=== PATIENT | female | born 1985 | race Asian ===

== ENCOUNTER 2021-12-28 16:19 | Observation (INO) ==
--- NOTE | 2021-12-28 17:01 | Emergency Department Note ---
History of Present Illness General Chief complaint: Shortness of Breath/Dyspnea Stated complaint: CHEST PAIN Time Seen by Provider: 12/28/21 16:44 Source: patient History of Present Illness Provider complaint: Chest pain Onset (ago): day(s) 3 Location: chest Radiation: non-radiation Pain Consistency: + intermittent Maximum Pain Intensity: 7 Quality: + sharp Exacerbated By: + other (Deep breaths and cough) Associated symptoms: + chest pain, + cough, + fever/chills, + malaise and + weakness; no nausea/vomiting or no shortness of breath This is a 36-year-old female who presents with chest pain starting 3 days ago. She describes it as sharp. It is located in the middle of her chest. Is worse when she coughs or takes a deep breath. It is not associated with shortness of breath or difficulty breathing. She states that she has been sick for about a week with flulike symptoms. Initially she had diarrhea and then that went away. About 4 days ago she developed generalized fatigue and weakness and then sore throat and cough. Her cough is productive of yellow sputum. She denies any loss of taste or smell. She has felt feverish and had chills but when she took her temperature she did not have a fever. She feels nauseated but is not vomiting. She denies any abdominal pain, abnormal vaginal discharge or bleeding or urinary symptoms. She is vaccinated for COVID and has had a booster shot. She does have a history of cardiomyopathy which was discovered after she gave to her baby. She is currently on metoprolol and verapamil for this. She did take a COVID test at home 2 days ago which was negative. Home Medications Medication Instructions Recorded Confirmed Type atorvastatin 10 mg tablet 10 mg PO HS 07/24/18 12/28/21 History metoprolol succinate 25 mg See Rx Instructions .ROUTE .COMPLEX 07/24/18 12/28/21 History tablet,extended release 24 hr verapamil 180 mg tablet,extended 180 mg PO BID 07/24/18 12/28/21 History release famotidine 20 mg tablet 20 mg PO HS 12/01/19 12/28/21 History pantoprazole 40 mg tablet,delayed 40 mg PO QAM 12/28/21 12/28/21 History release Allergies Allergy/AdvReac Type Severity Reaction Status Date / Time shrimp Allergy Intermediate Unknown Verified 10/29/21 14:32 No Known Drug Allergies Allergy Unknown Verified 10/29/21 14:32 Past Med/Surg History Medical History (Updated 12/28/21 @ 23:09 by Dustin Michelle MD) Fatty liver GERD (gastroesophageal reflux disease) Hyperlipidemia Hypertrophic cardiomyopathy follows with [facility] Cardiology Surgical History History of removal of ovarian cyst bilateral History of wisdom tooth extraction Hx of LASIK Family History Father Family history of diabetes mellitus Other No family history of adverse response to anesthesia No pertinent family history Social History Smoking Status: Never smoker Second Hand Exposure: No; Hx Alcohol Use: No Hx Substance Use: No Preferred Language: Mandarin Serbian Communication Ability: Impaired Visual Impairment: No Limitations Hearing Ability: Normal 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 and A total of 10 systems reviewed and were otherwise negative Physical Exam Vital Signs Vital Signs - 24 hr 12/28/21 16:23 12/28/21 16:28 12/28/21 17:02 Temperature 36.8 C Temperature Source Temporal Artery Scan Pulse Rate 64 71 Pulse Rate [Apical] Respiratory Rate 20 Blood Pressure 90/63 L Blood Pressure [Right Arm] Blood Pressure Mean 72 Blood Pressure Mean [Right Arm] Blood Pressure Position [Right Arm] Pulse Oximetry 93 90 Oxygen Delivery Method Room Air Room Air Room Air Sepsis Recent Fever Within 48 Hours No Sepsis New/Unexplained Change in Mental Status No Sepsis Action Taken by Nursing No Action Required 12/28/21 18:19 12/28/21 18:25 Temperature Temperature Source Pulse Rate Pulse Rate [Apical] 82 Respiratory Rate 18 Blood Pressure Blood Pressure [Right Arm] 97/76 L Blood Pressure Mean Blood Pressure Mean [Right Arm] 83 Blood Pressure Position [Right Arm] Lying Pulse Oximetry 92 Oxygen Delivery Method Room Air Sepsis Recent Fever Within 48 Hours Sepsis New/Unexplained Change in Mental Status Sepsis Action Taken by Nursing Constitutional: Vital signs reviewed. Eyes: Pupils are equal round reactive to light. Conjunctiva are noninjected. ENT: Pharynx is clear without erythema or exudate. Mucous membranes are moist. Neck supple without meningeal signs. Respiratory: Clear to auscultation bilaterally. Breath sounds are equal bilaterally. Cardiovascular: Regular rate and rhythm. No rubs or gallops. GI: Soft, nondistended and nontender. Bowel sounds are present. Musculoskeletal: No peripheral edema. No lower extremity tenderness. Integumentary: No cyanosis. or jaundice. Neurological: The patient is awake and alert. No focal deficits. Psychiatric: Normal affect. Not anxious appearing. Course Administered Medications Atorvastatin Calcium (Atorvastatin 10 Mg Tab) 10 mg PO HS ANTONIO Stop: 01/27/22 20:59 Last Admin: 12/28/21 22:51 Dose: 10 mg Documented by: [id number] Famotidine (Famotidine 20 Mg Tab) 20 mg PO HS ANTONIO Stop: 01/27/22 20:59 Last Admin: 12/28/21 22:50 Dose: 20 mg Documented by: [id number] Guaifenesin (Guaifenesin 600 Mg Tabcr) 600 mg PO Q12 ANTONIO Stop: 01/27/22 20:59 Last Admin: 12/28/21 22:50 Dose: 600 mg Documented by: [id number] Metoprolol Succinate (Metoprolol Succ 50mg Ext Rel Tab) 50 mg PO HS [facility] Stop: 01/27/22 21:14 Last Admin: 12/28/21 22:48 Dose: 50 mg Documented by: [id number] Verapamil HCl (Verapamil Hcl 180 Mg Tabcr) 180 mg PO BID ANTONIO Stop: 01/27/22 20:59 Last Admin: 12/28/21 22:49 Dose: 180 mg Documented by: [id number] Discontinued Medications Piperacillin Sod/Tazobactam Sod (Zosyn) 4.5 gm in 120 mls @ 240 mls/hr IV NOW ONE Stop: 12/28/21 19:01 Last Admin: 12/28/21 19:28 Dose: Not Given Documented by: [id number] Medical Decision Making Differential Diagnosis COVID-19, pneumonia, pleurisy, pulmonary embolism, CHF Medical Records Attestation: I reviewed the patient's medical records. I did perform a limited focused review of portions of the patient's old chart on the electronic medical record. The patient was seen by Dr. Watts of cardiology in May 2021. He noted that she has a history of hypertrophic cardiomyopathy with chronic dyspnea on exertion and borderline blood pressures with preserved left ventricular systolic function. Stress echocardiogram was negative for inducible ischemia or ectopy in May 2021. Home Medications Current Medication List: was personally reviewed by me Laboratory Data Attestation: I reviewed the patient's lab results. Result diagrams: 12/28/21 17:18 12/28/21 17:18 Lab Results 12/28/21 12/28/21 12/28/21 Range/Units 17:18 17:18 17:18 WBC 5.71 (4.8-10.8) K/ul RBC 4.91 (3.93-5.22) M/uL Hgb 14.6 (12.0-16.0) g/dl Hct 43.4 (34.1-44.9) % MCV 88.4 (80.0-100.0) fL MCH 29.7 (25.0-34.0) pg MCHC 33.6 (32.0-36.0) g/dL RDW Std Deviation 43.2 (36.4-46.3) fL RDW Coeff of Sabina 13.2 (11.5-14.5) % Plt Count 141 (130-400) K/uL MPV 12.8 H (9.4-12.3) fL Immature Gran % (Auto) 0.7 % Neut % (Auto) 66.9 % Lymph % (Auto) 19.8 % Harlan % (Auto) 12.4 % Eos % (Auto) 0.0 % Baso % (Auto) 0.2 % Neut # (Auto) 3.82 (1.4-6.5) K/uL Lymph # (Auto) 1.13 L (1.2-3.4) K/uL Harlan # (Auto) 0.71 (0.24-0.82) K/uL Eos # (Auto) 0.00 (0-0.50) K/uL Baso # (Auto) 0.01 (0-0.2) K/uL Immature Gran # (Auto) 0.04 H (0.00-0.02) K/uL PT 11.1 (9.0-12.0) Seconds INR 1.0 (0.9-1.1) APTT 30.5 (21.0-31.0) Seconds PTT Ratio 1.1 D-Dimer 240 (0-500) ug/L FEU Sodium (136-145) mmol/L Potassium (3.5-5.1) mmol/L Chloride (98-107) mmol/L Carbon Dioxide (21-32) mmol/L Anion Gap (3-11) BUN (6-23) mg/dl Creatinine (0.6-1.2) mg/dl Est Cr Clr Drug Dosing Est GFR ( Amer) ml/min Est GFR (Non-Af Amer) ml/min BUN/Creatinine Ratio (10-20) Glucose (70-99(Fasting)) mg/dl Calcium (8.5-10.1) mg/dl Total Bilirubin (0.2-1.0) mg/dl AST (13-39) U/L ALT (7-52) U/L Alkaline Phosphatase (34-104) U/L Troponin I High Sens (0-14) pg/ml B-Natriuretic Peptide 272 H (0-100) pg/ml Total Protein (6.0-8.3) gm/dl Albumin (3.4-5.0) gm/dl Globulin (2.5-4.0) gm/dl Albumin/Globulin Ratio (0.9-2) Urine Color Urine Appearance (Clear) Urine pH (4.5-7.5) Ur Specific [place] (1.000-1.030) Urine Protein (Negative) Urine Glucose (UA) (Negative) Urine Ketones (Negative) Urine Blood (Negative) Urine Nitrite (Negative) Urine Bilirubin (Negative) Urine Urobilinogen (Negative) Ur Leukocyte Esterase (Negative) POC Ur Test (NEG) SARS-CoV-2, RNA, NAAT (NEGATIVE) 12/28/21 12/28/21 12/28/21 Range/Units 17:18 17:34 17:35 WBC (4.8-10.8) K/ul RBC (3.93-5.22) M/uL Hgb (12.0-16.0) g/dl Hct (34.1-44.9) % MCV (80.0-100.0) fL MCH (25.0-34.0) pg MCHC (32.0-36.0) g/dL RDW Std Deviation (36.4-46.3) fL RDW Coeff of Sabina (11.5-14.5) % Plt Count (130-400) K/uL MPV (9.4-12.3) fL Immature Gran % (Auto) % Neut % (Auto) % Lymph % (Auto) % Harlan % (Auto) % Eos % (Auto) % Baso % (Auto) % Neut # (Auto) (1.4-6.5) K/uL Lymph # (Auto) (1.2-3.4) K/uL [place] # (Auto) (0.24-0.82) K/uL Eos # (Auto) (0-0.50) K/uL Baso # (Auto) (0-0.2) K/uL Immature Gran # (Auto) (0.00-0.02) K/uL PT (9.0-12.0) Seconds INR (0.9-1.1) APTT (21.0-31.0) Seconds PTT Ratio D-Dimer (0-500) ug/L FEU Sodium 132 L (136-145) mmol/L Potassium 3.8 (3.5-5.1) mmol/L Chloride 100 (98-107) mmol/L Carbon Dioxide 24 (21-32) mmol/L Anion Gap 8 (3-11) BUN 15 (6-23) mg/dl Creatinine 0.85 (0.6-1.2) mg/dl Est Cr Clr Drug Dosing Not Reportable Est GFR ( Amer) 102.9 ml/min Est GFR (Non-Af Amer) 88.8 ml/min BUN/Creatinine Ratio 17.6 (10-20) Glucose 105 H (70-99(Fasting)) mg/dl Calcium 8.8 (8.5-10.1) mg/dl Total Bilirubin 0.6 (0.2-1.0) mg/dl AST 21 (13-39) U/L ALT 23 (7-52) U/L Alkaline Phosphatase 55 (34-104) U/L Troponin I High Sens 50.2 H* (0-14) pg/ml B-Natriuretic Peptide (0-100) pg/ml Total Protein 7.6 (6.0-8.3) gm/dl Albumin 4.2 (3.4-5.0) gm/dl Globulin 3.4 (2.5-4.0) gm/dl Albumin/Globulin Ratio 1.2 (0.9-2) Urine Color Yellow Urine Appearance Clear (Clear) Urine pH 7.5 (4.5-7.5) Ur Specific [place] 1.006 (1.000-1.030) Urine Protein Negative (Negative) Urine Glucose (UA) Negative (Negative) Urine Ketones Negative (Negative) Urine Blood Negative (Negative) Urine Nitrite Negative (Negative) Urine Bilirubin Negative (Negative) Urine Urobilinogen Negative (Negative) Ur Leukocyte Esterase Negative (Negative) POC Ur Test (NEG) SARS-CoV-2, RNA, NAAT NEGATIVE (NEGATIVE) 12/28/21 Range/Units 17:35 WBC (4.8-10.8) K/ul RBC (3.93-5.22) M/uL Hgb (12.0-16.0) g/dl Hct (34.1-44.9) % MCV (80.0-100.0) fL MCH (25.0-34.0) pg MCHC (32.0-36.0) g/dL RDW Std Deviation (36.4-46.3) fL RDW Coeff of Sabina (11.5-14.5) % Plt Count (130-400) K/uL MPV (9.4-12.3) fL Immature Gran % (Auto) % Neut % (Auto) % Lymph % (Auto) % Harlan % (Auto) % Eos % (Auto) % Baso % (Auto) % Neut # (Auto) (1.4-6.5) K/uL Lymph # (Auto) (1.2-3.4) K/uL [place]lan # (Auto) (0.24-0.82) K/uL Eos # (Auto) (0-0.50) K/uL Baso # (Auto) (0-0.2) K/uL Immature Gran # (Auto) (0.00-0.02) K/uL PT (9.0-12.0) Seconds INR (0.9-1.1) APTT (21.0-31.0) Seconds PTT Ratio D-Dimer (0-500) ug/L FEU Sodium (136-145) mmol/L Potassium (3.5-5.1) mmol/L Chloride (98-107) mmol/L Carbon Dioxide (21-32) mmol/L Anion Gap (3-11) BUN (6-23) mg/dl Creatinine (0.6-1.2) mg/dl Est Cr Clr Drug Dosing Est GFR ( Amer) ml/min Est GFR (Non-Af Amer) ml/min BUN/Creatinine Ratio (10-20) Glucose (70-99(Fasting)) mg/dl Calcium (8.5-10.1) mg/dl Total Bilirubin (0.2-1.0) mg/dl AST (13-39) U/L ALT (7-52) U/L Alkaline Phosphatase (34-104) U/L Troponin I High Sens (0-14) pg/ml B-Natriuretic Peptide (0-100) pg/ml Total Protein (6.0-8.3) gm/dl Albumin (3.4-5.0) gm/dl Globulin (2.5-4.0) gm/dl Albumin/Globulin Ratio (0.9-2) Urine Color Urine Appearance (Clear) Urine pH (4.5-7.5) Ur Specific [place] (1.000-1.030) Urine Protein (Negative) Urine Glucose (UA) (Negative) Urine Ketones (Negative) Urine Blood (Negative) Urine Nitrite (Negative) Urine Bilirubin (Negative) Urine Urobilinogen (Negative) Ur Leukocyte Esterase (Negative) POC Ur Test NEG (NEG) SARS-CoV-2, RNA, NAAT (NEGATIVE) Imaging Data Radiologist's Impression: Chest X-Ray 12/28/21 17:53 XR chest 1V portable CLINICAL HISTORY: cough eval for pna TECHNIQUE: Single frontal radiograph of the chest was obtained. Comparison: None available at the time of this dictation. FINDINGS: No lines and tubes are seen. Mild prominence of the cardiac silhouette is seen. Right lower lung airspace opacity is seen. No evidence of pleural effusion or pneumothorax. IMPRESSION: Right lower lung airspace opacity may represent atelectasis, pneumonia, and/or aspiration. ACT 112: Negative or not required by law. Electronically signed by: Maurilio Shanks M.D. 12/28/2021 6:44 PM ECG Data Attestation: I personally reviewed and interpreted this ECG as follows: Indication: + chest pain Rate (beats per minute): 68 Rhythm: + normal sinus ECG Intervals/blocks: + First degree AV block ECG [place]: + Normal ECG ST segments: + T-wave inversions ECG Findings: + LVH and + Other (Left atrial enlargement) Comparison ECG Date: no prior available MDM Narrative I did evaluate the patient as noted above. She is presenting with flulike symptoms for the past week. She did develop chest pain about 3 days ago which is pleuritic in nature. She denies feeling short of breath. She does have a history of hypertrophic cardiomyopathy as described above. She was placed in respiratory isolation. COVID testing was obtained and was negative. She was taken out of isolation. IV access was established. I did place an order for continuous cardiac monitoring. The monitor showed normal sinus rhythm at a rate of 69 bpm. I did order and personally review the patient's 12-lead EKG as described above. She has T wave inversions and left atrial enlargement with LVH. No old EKGs available for comparison. I did order and personally reviewed the images of the patient's chest x-ray as described above. She does appear to have a right lower lobe pneumonia. I did order blood cultures and treated her with Zosyn IV. I did order a urine analysis. There is no evidence of infection. She is not . I did order and review the patient's blood work as noted in the electronic medical record. CBC is unremarkable without leukocytosis or anemia. CMP demonstrates a sodium of 132. Her high-sensitivity troponin is elevated at 50 and her BNP is 272. I did discuss the test results with the patient. She will be hospitalized for further care and evaluation. I did dis cuss case with the hospitalist and case monitor. Impression & Plan Right lower lobe pneumonia, Elevated troponin I level, Hypertrophic ca rdiomyopathy, Acute chest pain, Abnormal ECG, Hyponatremia Discharge Plan Visit Data Chief Complaint: Shortness of Breath/Dyspnea Stated Complaint: CHEST PAIN ED Provider: Allen Swanson Discharge Problem: Right lower lobe pneumonia, Elevated troponin I level, Hypertrophic cardiomyopathy, Acute chest pain, Abnormal ECG, Hyponatremia Patient Disposition: Admitted As Inpatient Discharge Instructions Interventions: ED Discharge Assessment Last Done: 12/28/21 19:55
[2021-12-28 17:53] LABS: Basophils # (auto) 0.01 K/uL (0-0.2); Basophils % (auto) 0.2 %; Hematocrit (blood only) 43.4 % (34.1-44.9); Hemoglobin 14.6 g/dl (12.0-16.0); Immature Granulocytes # (auto) 0.04 K/uL (0.00-0.02); Immature Granulocytes % (auto) 0.7 %; Lymphocytes # (auto) 1.13 K/uL (1.2-3.4); Lymphocytes % (auto) 19.8 %; Mean Corpuscular Hemoglobin 29.7 pg (25.0-34.0); Mean Corpuscular Hgb Conc 33.6 g/dL (32.0-36.0); Mean Corpuscular Volume 88.4 fL (80.0-100.0); Mean Platelet Volume 12.8 fL (9.4-12.3); Monocytes # (auto) 0.71 K/uL (0.24-0.82); Monocytes % (auto) 12.4 %; Neutrophils # (auto) 3.82 K/uL (1.4-6.5); Neutrophils % (auto) 66.9 %; Platelet Count 141 K/uL (130-400); RDW Coefficient of Variation 13.2 % (11.5-14.5); RDW Standard Deviation 43.2 fL (36.4-46.3); Red Blood Count 4.91 M/uL (3.93-5.22); White Blood Count 5.71 K/ul (4.8-10.8)
[2021-12-28 17:54] LABS: Appearance Urine Clear (Clear); Bilirubin Urine Negative (Negative); Blood Urine Negative (Negative); Color Urine Yellow; Glucose Urine UA Negative (Negative); Ketones Urine Negative (Negative); Leukocyte Esterase Urine Negative (Negative); Nitrite Urine Negative (Negative); Protein Urine Negative (Negative); Specific Gravity Urine 1.006 (1.000-1.030); Urobilinogen Urine Negative (Negative); pH Urine 7.5 (4.5-7.5)
[2021-12-28 18:21] LABS: Alanine Aminotransferase 23 U/L (7-52); Albumin Globulin Ratio 1.2 (0.9-2); Albumin Level 4.2 gm/dl (3.4-5.0); Alkaline Phosphatase 55 U/L (34-104); Anion Gap 8 (3-11); Aspartate Aminotransferase 21 U/L (13-39); BUN Creatinine Ratio 17.6 (10-20); Bilirubin,Total 0.6 mg/dl (0.2-1.0); Blood Urea Nitrogen 15 mg/dl (6-23); Calcium 8.8 mg/dl (8.5-10.1); Carbon Dioxide 24 mmol/L (21-32); Chloride 100 mmol/L (98-107); Est GFR (African American) 102.9 ml/min; Est GFR (Non-African American) 88.8 ml/min; Globulin 3.4 gm/dl (2.5-4.0); Glucose 105 mg/dl (70-99(Fasting)); Potassium 3.8 mmol/L (3.5-5.1); Sodium 132 mmol/L (136-145); Total Protein 7.6 gm/dl (6.0-8.3)
[2021-12-28 18:23] LABS: Troponin I High Sensitivity 50.2 pg/ml (0-14)
[2021-12-28 18:28] LABS: D Dimer 240 ug/L FEU (0-500); Partial Thromboplastin Ratio 1.1; Partial Thromboplastin Time 30.5 Seconds (21.0-31.0); Prothrombin Time 11.1 Seconds (9.0-12.0)
[2021-12-28] MEDS ORDERED: PIPERACILLIN/TAZOBACTAM 4.5 GM/120 ML BAG IV ONE (18:32)
--- NOTE | 2021-12-28 18:46 | XRay Report ---
XR chest 1V portable CLINICAL HISTORY: cough eval for pna TECHNIQUE: Single frontal radiograph of the chest was obtained. Comparison: None available at the time of this dictation. FINDINGS: No lines and tubes are seen. Mild prominence of the cardiac silhouette is seen. Right lower lung airs pace opacity is seen. No evidence of pleural effusion or pneumothorax. IMPRESSION: Right lower lung airspace opacity may represent atelectasis, pneumonia, and/or aspiration. ACT 112: Negative or not required by law. Electronically signed by: Maurilio Shanks M.D. 12/28/2021 6:44 PM
--- NOTE | 2021-12-28 19:09 | History & Physical Report ---
Date of Service December 28, 2021 Assessment & Plan (1) Viral pneumonia: Plan: Metapneumovirus on [employer] PCR No need for antibiotics (Zosyn ordered in the ER was discontinued prior to being given), no definitive consolidation on CXR, procalcitonin and WBC negative with only 3 days of symptoms Guaifenesin 600mg PO BID Droplet precautions (2) Chest pain: Plan: Suspect MSK due to coughing. However given elevated troponin and not clearly non-positional will get inflammatory markers with AM labs, trend troponin overnight, TTE and consult cardiology. (3) Elevated troponin I level: Plan: Suspect this is somewhat chronic due to hypertrophic cardiomyopathy although difficult to rule out perimyocarditis. (4) Hyperlipidemia: Plan: Continue atorvastatin 10mg PO daily (5) Hypertrophic cardiomyopathy: Plan: TTE (6) GERD (gastroesophageal reflux disease): Plan: Continue famotidine 20mg PO HS and pantoprazole 40mg PO QAM Plan: VTE Prophylaxis - low risk Diet - heart healthy Disposition - observation status to med/tele Admission and Anticipated Discharge Date Admission Date: December 28, 2021 History of Present Illness Chief Complaint: Chest pain Primary Care Provider: NO PCP Shonda Mata is a 36 year old female with hypertrophic cardiomyopathy who presents to the ER with shortness of breath, chest pain and cough for 3 days. She denies any fever, chills or sinus pain. She reports chest burning when she coughs. Unsure if it changes with position. Worse on inspiration. No fever or chills. No sinus pain. Headache when she coughs. Currently no chest pain. In the ER high sensitivity troponin was elevated at 50.2 pg/ml. She was referred to medicine for admission and ongoing management due to concern for right lower lobe pneumonia, abnormal EKG, chest pain and elevated troponin. Allergies Allergy/AdvReac Type Severity Reaction Status Date / Time shrimp Allergy Intermediate Unknown Verified 10/29/21 14:32 No Known Drug Allergies Allergy Unknown Verified 10/29/21 14:32 Home Medications Medication Instructions Recorded Confirmed Type atorvastatin 10 mg tablet 10 mg PO HS 07/24/18 12/28/21 History metoprolol succinate 25 mg See Rx Instructions .ROUTE .COMPLEX 07/24/18 12/28/21 History tablet,extended release 24 hr verapamil 180 mg tablet,extended 180 mg PO BID 07/24/18 12/28/21 History release famotidine 20 mg tablet 20 mg PO HS 12/01/19 12/28/21 History pantoprazole 40 mg tablet,delayed 40 mg PO QAM 12/28/21 12/28/21 History release Past Med/Surg History Medical History (Updated 12/28/21 @ 23:09 by Dustin Michelle MD) Fatty liver GERD (gastroesophageal reflux disease) Hyperlipidemia Hypertrophic cardiomyopathy follows with [facility] Cardiology Surgical History History of removal of ovarian cyst bilateral History of wisdom tooth extraction Hx of LASIK Family History Father Family history of diabetes mellitus Other No family history of adverse response to anesthesia No pertinent family history Social History Smoking Status: Never smoker Second Hand Exposure: No; Hx Alcohol Use: No Hx Substance Use: No Preferred Language: OralWise Communication Ability: Impaired Visual Impairment: No Limitations Hearing Ability: Normal 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 Beliefs That Will Affect Care: None marital status: Current Living Situation: Family Current Living Situation Comment: Lives with daughter Feels Safe at Home: Yes Physical Exam Constitutional: WD/WN, vitals as above ENMT: external ear and nose normal, oropharynx normal Neck: trachea midline, no thyromegaly Respiratory: normal respiratory effort, lungs clear to auscultation Cardiovascular: RRR, no murmur, no edema Gastrointestinal (Abdomen): normal bowel sounds, soft, nontender, no hepatosplenomegaly Musculoskeletal: no cyanosis or clubbing, extremities motor strength 5/5 Skin: no rashes, warm and dry Neurologic: moves all extremities and awake; not confused Psychiatric: A+Ox3, euthymic affect Results & Data Results & Data ([facility]) Vital Signs (Past 12 Hours) Vital Signs Temp Pulse Pulse Resp BP BP Pulse Ox 12/28/21 18:19 82 18 97/76 L 92 12/28/21 17:02 71 90 12/28/21 16:23 36.8 C 64 20 90/63 L 93 Laboratory Results Abnormal lab results 12/28/21 12/28/21 12/28/21 Range/Units 17:18 17:18 17:18 MPV 12.8 H (9.4-12.3) fL Lymph # (Auto) 1.13 L (1.2-3.4) K/uL Immature Gran # (Auto) 0.04 H (0.00-0.02) K/uL Sodium 132 L (136-145) mmol/L Glucose 105 H (70-99(Fasting)) mg/dl Troponin I High Sens 50.2 H* (0-14) pg/ml B-Natriuretic Peptide 272 H (0-100) pg/ml Diagnostic Findings XR chest 1V portable CLINICAL HISTORY: cough eval for pna TECHNIQUE: Single frontal radiograph of the chest was obtained. Comparison: None available at the time of this dictation. FINDINGS: No lines and tubes are seen. Mild prominence of the cardiac silhouette is seen. Right lower lung airspace opacity is seen. No evidence of pleural effusion or pneumothorax. IMPRESSION: Right lower lung airspace opacity may represent atelectasis, pneumonia, and/or aspiration. Medications Administered ER Medications Given: Zosyn 4.5g IV (discontinued prior to being given) ECG Rate (beats per minute): 68 Rhythm: normal sinus Findings: + other (Left ventricular hypertrophy, T wave flattening lateral) and + 1st degree AV block Comparison ECG Date: no prior available Code Status & VTE Plan Code Status Full VTE Prophylaxis Plan VTE Prophylaxis will be ordered: Yes PG Care Time/CCT Total # of Minutes Spent Total Time Spent with Patient: Total time spent is greater than 50% in coordination of care (as documented) at patient's floor/unit and/or counseling patient: Coding Level of Care Code INT OBSERVATION CARE 50M LVL 2 Diagnoses Hyperlipidemia E78.5 Hypertrophic cardiomyopathy I42.2 Viral pneumonia J12.9 Elevated troponin I level R77.8 GERD (gastroesophageal reflux disease) K21.9 Chest pain R07.9
[2021-12-28 20:54] LABS: Adenovirus PCR Not Detected (NotDetected); Bordetella parapertussis PCR Not Detected (NotDetected); Bordetella pertussis PCR Not Detected (NotDetected); Chlamydia pneumoniae PCR Not Detected (NotDetected); Coronavirus 229E PCR Not Detected (NotDetected); Coronavirus CoV-2 (COVID19)PCR Not Detected (NotDetected); Coronavirus HKU1 PCR Not Detected (NotDetected); Coronavirus NL63 PCR Not Detected (NotDetected); Coronavirus OC43PCR Not Detected (NotDetected); Influenza A PCR Not Detected (NotDetected); Influenza B PCR Not Detected (NotDetected); Mycoplasma pneumoniae PCR Not Detected (NotDetected); Parainfluenza Virus 1 PCR Not Detected (NotDetected); Parainfluenza Virus 2 PCR Not Detected (NotDetected); Parainfluenza Virus 3 PCR Not Detected (NotDetected); Parainfluenza Virus 4 PCR Not Detected (NotDetected); Respiratory Syncytial VirusPCR Not Detected (NotDetected); Rhinovirus/Enterovirus PCR Not Detected (NotDetected)
[2021-12-28] MEDS ORDERED: POLYETHYLENE (MIRALAX) 17 GM PACK PO PRN (20:57)
[2021-12-28] MEDS ORDERED: ALUMINUM/MAGNESIUM SUSP 30 ML UDC PO PRN (20:57)
[2021-12-28] MEDS ORDERED: ACETAMINOPHEN 325 MG TAB PO PRN (20:57)
[2021-12-28 20:58] LABS: Human Metapneumovirus PCR DETECTED (NotDetected)
[2021-12-28] MEDS: METOPROLOL SUCC 50MG EXT REL TAB PO SCH (22:48)
[2021-12-28] MEDS: VERAPAMIL HCL 180 MG TABCR PO SCH (22:49)
[2021-12-28] MEDS: FAMOTIDINE 20 MG TAB PO SCH (22:50)
[2021-12-28] MEDS: guaiFENesin 600 MG TABCR PO SCH (22:50)
[2021-12-28] MEDS: ATORVASTATIN 10 MG TAB PO SCH (22:51)
[2021-12-29 05:53] LABS: Basophils # (auto) 0.01 K/uL (0-0.2); Basophils % (auto) 0.2 %; Hematocrit (blood only) 39.4 % (34.1-44.9); Hemoglobin 13.3 g/dl (12.0-16.0); Immature Granulocytes # (auto) 0.02 K/uL (0.00-0.02); Immature Granulocytes % (auto) 0.5 %; Lymphocytes % (auto) 26.9 %; Mean Corpuscular Hemoglobin 29.5 pg (25.0-34.0); Mean Corpuscular Hgb Conc 33.8 g/dL (32.0-36.0); Mean Corpuscular Volume 87.4 fL (80.0-100.0); Mean Platelet Volume 12.7 fL (9.4-12.3); Monocytes # (auto) 0.55 K/uL (0.24-0.82); Monocytes % (auto) 13.4 %; Neutrophils # (auto) 2.41 K/uL (1.4-6.5); Platelet Count 142 K/uL (130-400); RDW Standard Deviation 41.6 fL (36.4-46.3); Red Blood Count 4.51 M/uL (3.93-5.22); White Blood Count 4.09 K/ul (4.8-10.8)
[2021-12-29 06:23] LABS: BUN Creatinine Ratio 18.2 (10-20); C Reactive Protein 6.5 mg/dl (0-0.5); Calcium 8.6 mg/dl (8.5-10.1); Creatinine Clr Calc Pharmacy 105.8 ml/min; Est GFR (African American) 132.6 ml/min; Est GFR (Non-African American) 114.4 ml/min
[2021-12-29] MEDS: PANTOprazole 40 MG TAB PO SCH (08:57)
[2021-12-29] MEDS: VERAPAMIL HCL 180 MG TABCR PO SCH (08:57)
[2021-12-29] MEDS: guaiFENesin 600 MG TABCR PO SCH (08:57)
[2021-12-29] MEDS: METOPROLOL SUCC 25MG EXT REL TAB PO SCH (08:58)
--- NOTE | 2021-12-29 11:48 | XCELERA ---
[id number]
--- NOTE | 2021-12-29 13:01 | Electrocardiogram Report ---
Test Reason : Blood Pressure : / mmHG Vent. Rate : 068 BPM Atrial Rate : 068 BPM P-R Int : 230 ms QRS Dur : 096 ms QT Int : 422 ms P-R-T Axes : 040 -07 011 degrees QTc Int : 448 ms Sinus rhythm with 1st degree A-V block Possible Left atrial enlargement Left ventricular hypertrophy with repolarization abnormality possible Inferior infarct , age undetermined Abnormal ECG No previous ECGs available Confirmed by Shahid Mcclain ([id number]) on 12/29/2021 1:00:41 PM Referred By: REFERRED SELF Confirmed By:Prabhakar Mcclain
[2021-12-29] MEDS ORDERED: MELATONIN 3 MG TAB PO PRN (14:50)
[2021-12-29] MEDS ORDERED: SODIUM CHLORIDE 0.9% 1000ML 250 ML IV ONE (15:59)
--- NOTE | 2021-12-29 16:05 | Hospitalist Progress Note ---
Date of Service December 29, 2021 Assessment & Plan (1) Viral pneumonia: Plan: Human metapneumovirus, pneumonia with cough Bio fire positive for human metapneumovirus CRP 6.5 Received empiric Zosyn in ER, discontinued with viral source Procalcitonin negative Leukocytosis negative Symptom onset approximately 12/25 COVID-negative Patient both feels tired from her cough and has difficulty expectorating. Will trial Mucinex for symptomatic relief Patient reports that she runs with a blood pressure in the low 100s at baseline Encouraging p.o., fluid support as needed. Echo as below, not hyperdynamic. Has been hypotensive into the 90s intermittently, additional fluids given. Will give additional IV fluids despite p.o. improving and patient reporting only a little bit below her baseline as is at increased risk for outflow obstruction due to her HCM We will continue to observe given borderline low pressures quiring IV fluid bolus and increased risk of complications. Also to see cardiology in the morning (2) Chest pain: Plan: Suspect MSK due to coughing. Improved at time of AM assessment, does recur intermittently with cough HS trop midly elevated, downtrended TTE: HCM, EF 55-60%, LVSF normal BNP 272, no evidence of volume overload and MM tacky actually slightly volume depleted. In the setting of HCM. (3) Elevated troponin I level: Plan: Suspect this is somewhat chronic due to hypertrophic cardiomyopathy No evidence of pericarditis on echo (4) Hyperlipidemia: Plan: Continue atorvastatin 10mg PO daily (5) Hypertrophic cardiomyopathy: Plan: TTE (6) GERD (gastroesophageal reflux disease): Plan: Continue famotidine 20mg PO HS and pantoprazole 40mg PO QAM Plan: VTE Prophylaxis - low risk Diet - heart healthy Disposition - observation status to med/tele Admission and Anticipated Discharge Date Admission Date: December 28, 2021 Subjective Seen the bedside this morning. She reports she continues to have a cough productive for some thick dark yellow sputum. No feelings of fever or chills overnight, but feels tired from her coughing. Is not short of breath or having chest pain at time of assessment, does still endorse some chest pain when coughing. she is eager to hear about her echo results, aware that her PCR was positive for metapneumovirus. Overt she has been eating and drinking okay, somewhat diminished appetite but has been tolerating fluids this morning. No diarrhea this morning. She has not had any night sweats or shaking chills, was cold last night. Slept poorly last night, would like to try melatonin for sleep. Denies lightheadedness/dizziness Review of Systems Review of Systems: All systems reviewed & are unremarkable except as noted in Subjective Physical Exam Physical Exam: General: A&Ox3. NAD. Cooperative. HEENT: Atraumatic, normocephalic. Vision and hearing intact. MM tacky. Pulm: CTAB A&P. -wheezes, -rales, -rhonchi. Symmetrical chest rise. No increase in work of breathing. No respiratory distress. Cardiac: RRR, -mrg. Radial pulses intact and symmetrical. Abdominal: Nontender, nondistended, soft. BS present. Results & Data Results & Data ([facility]) Vital Signs (Past 12 Hours) Vital Signs Temp Pulse Pulse Resp BP BP Pulse Ox 12/29/21 15:21 54 L 12/29/21 15:10 36.3 C L 54 L 16 89/59 L 92 12/29/21 11:10 36.7 C 55 L 18 91/59 L 94 12/29/21 09:28 56 L 12/29/21 07:33 36.7 C 49 L 18 87/54 L 95 PG Care Time/CCT Total # of Minutes Spent Total Time Spent with Patient: Total time spent is greater than 50% in coordination of care (as documented) at patient's floor/unit and/or counseling patient: Coding Level of Care Code 98359 Subseq Obs Care Lvl 2 Diagnoses Viral pneumonia J12.9 Chest pain R07.9 Elevated troponin I level R77.8 Hyperlipidemia E78.5 Hypertrophic cardiomyopathy I42.2 GERD (gastroesophageal reflux disease) K21.9
[2021-12-29] MEDS ORDERED: LACTATED RINGER'S 500 ML IV SCH (19:30)
[2021-12-29] MEDS ORDERED: FLUTICASONE PROPIONATE NA SPR 16 GM BTL PRN (19:43)
[2021-12-29] MEDS ORDERED: SODIUM CHLORIDE 0.65% NA SOLN 45 ML (OCEAN) PRN (19:45)
[2021-12-29] MEDS: ATORVASTATIN 10 MG TAB PO SCH (21:58)
[2021-12-29] MEDS: FAMOTIDINE 20 MG TAB PO SCH (21:58)
[2021-12-29] MEDS: METOPROLOL SUCC 50MG EXT REL TAB PO SCH (21:58)
[2021-12-29] MEDS: guaiFENesin/DEXTROM SYRUP 100MG/10MG 5ML UDC PO PRN (21:59)
[2021-12-30 06:56] LABS: Hematocrit (blood only) 40.5 % (34.1-44.9); Hemoglobin 13.7 g/dl (12.0-16.0); Mean Corpuscular Hemoglobin 29.8 pg (25.0-34.0); Mean Corpuscular Hgb Conc 33.8 g/dL (32.0-36.0); Mean Corpuscular Volume 88.2 fL (80.0-100.0); Platelet Count 147 K/uL (130-400); RDW Coefficient of Variation 13.1 % (11.5-14.5); RDW Standard Deviation 42.1 fL (36.4-46.3); Red Blood Count 4.59 M/uL (3.93-5.22); White Blood Count 5.27 K/ul (4.8-10.8)
[2021-12-30 07:23] LABS: BUN Creatinine Ratio 23.6 (10-20); Calcium 8.5 mg/dl (8.5-10.1); Est GFR (African American) 125.8 ml/min; Est GFR (Non-African American) 108.5 ml/min; Potassium 3.9 mmol/L (3.5-5.1)
[2021-12-30 08:33] LABS: Basophils # (auto) 0.01 K/uL (0-0.2); Basophils % (auto) 0.2 %; Eosinophils # (auto) 0.06 K/uL (0-0.50); Eosinophils % (auto) 1.1 %; Immature Granulocytes # (auto) 0.03 K/uL (0.00-0.02); Immature Granulocytes % (auto) 0.6 %; Lymphocytes # (auto) 2.67 K/uL (1.2-3.4); Lymphocytes % (auto) 50.7 %; Monocytes # (auto) 0.64 K/uL (0.24-0.82); Monocytes % (auto) 12.1 %; Neutrophils # (auto) 1.86 K/uL (1.4-6.5); Neutrophils % (auto) 35.3 %
[2021-12-30] MEDS: PANTOprazole 40 MG TAB PO SCH (08:54)
[2021-12-30] MEDS: METOPROLOL SUCC 25MG EXT REL TAB PO SCH ×2 (08:55→09:03)
[2021-12-30] MEDS: guaiFENesin/DEXTROM SYRUP 100MG/10MG 5ML UDC PO PRN (08:57)
--- NOTE | 2021-12-30 08:57 | Cardiology Consultation ---
Date of Consultation December 30, 2021 Assessment & Plan (1) Viral pneumonia: IMPRESSIONS: 1. Hypertrophic cardiomyopathy with a small LV cavity and left ventricular ejection fraction in the range of 65% by echo 07/2019 in the [facility]. 2. Septal and anterior septal thickening upwards of 2.3 cm by echocardiogram; no evidence of LVOT obstruction. 3. [employer] Heart Association class 2, ACC stage C heart failure. 4. Holter monitor 05/2021: Rare PACs and rare PVCs, no evidence of nonsustained VT. 5. Stress echo 05/2021 without inducible ischemia or ectopy, below average exercise tolerance. Blunted BP response but NO evidence of exercise induced hypotension. 6. Echo this admission unchanged - not hyperdynamic, no LVOT obstruction, no effusion 7. Mild elevation in high sensitivity troponin likely secondary to hypertrophic cardiomyopathy Ms. Mata is improving. Her soft pressures improved with IVF, she typically runs about 100 systolically. She should continue with verapamil and metoprolol. Her heart rates have been on the low side but she is tolerating. I will drop her hold parameters to 50 bpm for heart rate. Her troponin trended down. No WMA on echo. Her EKG is abnormal at baseline and appears similar to previous. Troponin elevation is likely due to her hypertr ophic cardiomyopathy. She is not having chest pain outside of when she coughs. No ventricular ectopy on monitor. No effusion on echo. No s/s of myocarditis or pericarditis. Cardiology will sign off. Ms Mata is scheduled to see us in the office later this month. History of Present Illness Attending Physician: Melchor Khanna MD History of Present Illness Ms. Mata presented to the ED 12/28 with sob, chest pain and cough x 3 days. She was found to be positive on a Biofire panel for human metapneumovirus. She had a small elevation in HS troponin. Today she reports feeling somewhat better. She only has chest pain when she coughs, no worsening with laying back. She had an episode of dizziness last night but otherwise felt ok getting out of bed. No sob. She felt occasional skipped beats last night after having her metoprolol held although there was no ectopy on her monitor over night. No edema or orthopnea. Her weight is stable. Allergies Allergy/AdvReac Type Severity Reaction Status Date / Time shrimp Allergy Intermediate Unknown Verified 10/29/21 14:32 No Known Drug Allergies Allergy Unknown Verified 10/29/21 14:32 Home Medications Medication Instructions Recorded Confirmed Type atorvastatin 10 mg tablet 10 mg PO HS 07/24/18 12/28/21 History metoprolol succinate 25 mg See Rx Instructions .ROUTE .COMPLEX 07/24/18 12/28/21 History tablet,extended release 24 hr verapamil 180 mg tablet,extended 180 mg PO BID 07/24/18 12/28/21 History release famotidine 20 mg tablet 20 mg PO HS 12/01/19 12/28/21 History pantoprazole 40 mg tablet,delayed 40 mg PO QAM 12/28/21 12/28/21 History release Patient History Medical History Fatty liver GERD (gastroesophageal reflux disease) Hyperlipidemia Hypertrophic cardiomyopathy follows with [facility] Cardiology Surgical History History of removal of ovarian cyst bilateral History of wisdom tooth extraction Hx of LASIK Family History Father Family history of diabetes mellitus Other No family history of adverse response to anesthesia No pertinent family history Social History Smoking Status: Never smoker Second Hand Exposure: No; Hx Alcohol Use: No Hx Substance Use: No Preferred Language: [place]x [place] Indian Communication Ability: Effective Visual Impairment: No Limitations Hearing Ability: Normal Residential Coordinator Required: Yes and No Beliefs That Will Affect Care: None marital status: Current Living Situation: Family Current Living Situation Comment: Lives with daughter Feels Safe at Home: Yes Safety Concerns: Feels Safe At This Time Assistive Devices: None Review of Systems Review of Systems: All systems reviewed & are unremarkable except as noted in HPI & below Physical Exam Constitutional: WD/WN, vitals as above Respiratory: normal respiratory effort; no respiratory distress Auscultation: + crackles (bilateral bases) Cardiovascular: RRR, no murmur, no edema Skin: no rashes, warm and dry Neurologic: moves all extremities and awake Psychiatric: A+Ox3, euthymic affect Results & Data ([place]) Vital Signs (Past 12 Hours) Vital Signs Temp Pulse Pulse Resp BP Pulse Ox 12/30/21 07:33 36.4 C L 50 L 16 103/69 95 12/30/21 04:00 36.6 C 53 L 18 96/61 L 95 12/29/21 23:19 36.4 C L 52 L 18 98/63 L 95 12/29/21 22:32 43 L
--- NOTE | 2021-12-30 11:48 | Discharge Summary ---
Date of Service December 30, 2021 Admission HPI Per Admitting Provider Shonda Mata is a 36 year old female with hypertrophic cardiomyopathy who presents to the ER with shortness of breath, chest pain and cough for 3 days. She denies any fever, chills or sinus pain. She reports chest burning when she coughs. Unsure if it changes with position. Worse on inspiration. No fever or chills. No sinus pain. Headache when she coughs. Currently no chest pain. In the ER high sensitivity troponin was elevated at 50.2 pg/ml. She was referred to medicine for admission and ongoing management due to concern for right lower lobe pneumonia, abnormal EKG, chest pain and elevated troponin. Principal Diagnosis Human metapneumovirus Discharge Exam General: A&Ox3. NAD. Cooperative. HEENT: Atraumatic, normocephalic. Vision and hearing intact. MM moist Pulm: Cough present, lungs are CTAB A&P. -wheezes, -rales, -rhonchi. Symmetrical chest rise. No increase in work of breathing. No respiratory distress. Cardiac: Regular, bradycardia with appropriate chronotropic response when moving. Radial pulses intact and symmetrical. Abdominal: Nontender, nondistended, soft. BS present. Discharge Data Allergies Allergy/AdvReac Type Severity Reaction Status Date / Time shrimp Allergy Intermediate Unknown Verified 10/29/21 14:32 No Known Drug Allergies Allergy Unknown Verified 10/29/21 14:32 Consultations 12/28/21 18:37 ED Decision to Admit Stat 12/28/21 20:57 Consult Cardiology Routine Hospital Course (1) Viral pneumonia: Shonda is a 36-year-old female with a history of HCM who presented with cough with chest pain, was found to be positive for human metapneumovirus. She had a mildly elevated high-sensitivity troponin which did not uptrend, likely due to her HCM. Repeat echo showed normal wall motion without abnormality, normal EF, and other findings consistent with HCM. He does have fairly soft blood pressures in the low 100s sometimes 90s, and resting bradycardia with appropriate chronotropic response. Was seen by cardiology prior to discharge, recommended to continue verapamil and metoprolol with follow-up to their office later this month. Symptomatic support was recommended for viral URI with close follow-up. To do as outpatient: 1. OTC cough suppressant support, patient did well with guaifenesin DM during admission 2. No antibiotics indicated at discharge 3. Follow-up with cardiology later this month as scheduled for HCM 4. Follow-up with family medicine within 1 week. Human metapneumovirus, pneumonia with cough Bio fire positive for human metapneumovirus CRP 6.5 Was initially ordered Zosyn in ER, discontinued with viral source and did not receive a dose of this Procalcitonin negative Leukocytosis negative Symptom onset approximately 12/25 COVID-negative Patient both feels tired from her cough and has difficulty expectorating. Will trial Mucinex for symptomatic relief Patient reports that she runs with a blood pressure in the low 100s at baseline Encouraging p.o., fluid support as needed. Echo as below, not hyperdynamic. Has been hypotensive into the 90s intermittently, additional fluids given. Gave 1 additional IV bolus evening prior to discharge despite p.o. improving and patient reporting only a little bit below her baseline as is at increased risk for outflow obstruction due to her HCM Saw cardiology prior to discharge. Recommended continuing metoprolol and verapamil, note that her pressures do run low at baseline but she gets good clinical benefit with return of symptoms when verapamil is held. Adjusted hold parameters for bradycardia, does have appropriate chronotropic response when moving (2) Chest pain: Suspect MSK due to coughing. Improved at time of AM assessment, does recur intermittently with cough HS trop midly elevated, downtrended TTE: HCM, EF 55-60%, LVSF normal BNP 272, no evidence of volume overload and MM tacky actually slightly volume depleted on . In the setting of HCM. Without tachycardia or hypoxia (3) Elevated troponin I level: due to hypertrophic cardiomyopathy No evidence of pericarditis/wall motion abnormalities on echo (4) Hyperlipidemia: Continue atorvastatin 10mg PO daily (5) Hypertrophic cardiomyopathy: TTE as noted (6) GERD (gastroesophageal reflux disease): Continue famotidine 20mg PO HS and pantoprazole 40mg PO QAM VTE Prophylaxis - low risk Diet - heart healthy Disposition - observation status to med/tele Total Time Total Time Spent Total Time Spent (In Minutes): Time spend day of discharge 40 minutes including direct patient care, documentation, review of labs and images, and coordination of care. Discharge Plan Discharge Items Patient Disposition: Home - Self-Care Reason For Visit: CHEST PAIN Discharge Diagnosis: Human metapneumovirus Activity: Resume your previous activity Non-emergency contact: Primary Care Provider Call non-emergency contact if: you have any medication questions Follow-up/Referrals: Otilia Lemon CRNP [Nurse Practitioner] - (Follow up as scheduled later this month.) Nestor Fowler MD [Physician] - (01/07/2022 at 3pm) Diet: Regular Addtl Attending Provider Instructions: You were seen in the hospital for cough and were found to have human metapneumovirus, a viral infection that causes upper respiratory infections. Antibiotics were not prescribed as your infection is due to a viral illness. An ultrasound of your heart was performed and showed normal pumping function, with findings consistent with hypertrophic cardiomyopathy. You were seen by cardiology during admission. Your heart rates were noted to be low, but tolerated with appropriate increase when walking. Your metoprolol and verapamil were continued. You had an elevated troponin which is likely due to your hypertrophic cardiomyopathy, you did not show any evidence of heart attack, myocarditis, or pericarditis. A follow-up appointment is being scheduled for you with Dr. Guillory as above. A follow-up appointment is being scheduled for you for within [address] Fowler as above Your cough improved with MucinexDM during admission, you may continue to take this as prescribed on the [id number] labeling for symptomatic treatment of your cause. Most respiratory viruses including metapneumovirus gradually improve over the course of 10 days, the cough times gradually resolving slower. If you have any worsening of your symptoms, or your symptoms are not improving, please have reevaluation by your primary care provider. If you develop any new or worsening symptoms including fever, chills, sweats, chest pain, chest pressure, difficulty breathing, uncontrolled nausea/vomiting, rash, wheezing, passing out or nearly passing out, bleeding, black/bloody bowel movements, or other new or concerning symptoms please call your primary care physician, or call 911 for re-evaluation in the emergency department if you are very concerned. Pending Studies at Discharge: No Stand-Alone Forms: [employer], Smoking Cessation Medications and DC Order Prescriptions: Continued famotidine 20 mg tablet 20 mg PO HS RF: 0 atorvastatin 10 mg Tablet 10 mg PO HS RF: 0 verapamil 180 mg Tablet Extended Release 180 mg PO BID RF: 0 metoprolol succinate 25 mg Tablet Extended Release 24 Hr See Rx Instructions .ROUTE .COMPLEX RF: 0 pantoprazole 40 mg tablet,delayed release (DR/EC) 40 mg PO QAM RF: 0 Discharge Orders: Discharge Order (Routine); Ordered 12/30/21 Ordered By: Melchor Khanna Admission Data Admit Date/Time: 12/28/21 18:51 Attending Provider: Melchor Khanna Admit Provider: Dustin Michelle Primary Care Provider: PCP,NO Other Providers: Dustin Michelle ; Shahid Mcclain Other Interventions: Discharge Summary Assessment (RN) Last Done: 12/30/21 12:20 Coding Level of Care Code D/C DAY MANAGEMENT >30 MINS Diagnoses Viral pneumonia J12.9 Chest pain R07.9 Elevated troponin I level R77.8 Hyperlipidemia E78.5 Hypertrophic cardiomyopathy I42.2 GERD (gastroesophageal reflux disease) K21.9
[2021-12-30] MEDS: VERAPAMIL HCL 180 MG TABCR PO SCH (12:15)
== END 2021-12-30 13:09 | disposition home or self-care (01) ==
LOC: 2W 16:19 → ED 16:19 → SUATTDRO 18:51 → 2W 19:55